=== PATIENT | female | born 2000 | race Caucasian/White ===

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

== ENCOUNTER 2019-05-26 10:28 | Emergency (ER) | payer BC ==
[~2019-05-26] VITALS: Ht 160 cm; Wt 52.0 kg
[2019-05-26] MEDS ORDERED: ONDANSETRON 2MG/ML, 2ML IVPush ONE (11:00)
[2019-05-26] MEDS ORDERED: FAMOTIDINE 20 MG/2 ML IV ONE (11:00)
[2019-05-26] MEDS ORDERED: SODIUM CHLORIDE 0.9% 1,000ML IVBOLUS ONE ×2 (11:00→14:30)
[2019-05-26] MEDS ORDERED: SODIUM CHLORIDE FLUSH 10ML SYR IVF ONE (11:00)
[2019-05-26 11:19] LABS: MEAN CORPUSCULAR HEMOGLOBIN 28.6 pg (27.0-34.8); MEAN CORPUSCULAR HGB CONC 32.6 g/dL (32.4-35.8); MEAN CORPUSCULAR VOLUME 87.8 fL (80-100); MEAN PLATELET VOLUME 9.2 fL (7.4-10.4); PLATELET COUNT 148 x10^3/uL (130-400); RED BLOOD COUNT 5.61 x10^6/uL (3.82-5.3); RED CELL DISTRIBUTION WIDTH 13.5 % (9.6-15.2)
[2019-05-26 11:31] LABS: ALANINE AMINOTRANSFERASE 732 U/L (12-78); ALBUMIN 3.8 g/dL (3.4-5.0); ANION GAP 4 mmol/L (5-15); CALCIUM 8.6 mg/dL (8.5-10.1); CHLORIDE 106 mmol/L (98-107); CREATININE 0.87 mg/dL (0.55-1.02)
[2019-05-26 11:36] LABS: ALKALINE PHOSPHATASE 309 U/L (45-117); BILIRUBIN,TOTAL 2.1 mg/dL (0.2-1.0); TOTAL PROTEIN 7.8 g/dL (6.4-8.2)
[2019-05-26] MEDS ORDERED: FAMOTIDINE 20 MG/2 ML ONE (11:43)
[2019-05-26] MEDS ORDERED: ONDANSETRON 2MG/ML, 2ML ONE (11:43)
[2019-05-26 11:55] LABS: MD YES
--- NOTE | 2019-05-26 12:18 | NUR ---
US AT BEDSIDE
[2019-05-26 12:31] LABS: BANDS%(MANUAL) 5 % (0-7); LYMPH#(MANUAL) 4.52 x10^3/uL (1-6.1); LYMPHS% (MANUAL) 38 % (22-44); MONOS#(MANUAL) 0.36 x10^3/uL (0.3-2.7); MONOS% (MANUAL) 3 % (2-9); REACTIVE LYMPHS # (MANUAL) 3.69 x10^3/uL (0-0); SEG#(MANUAL) 2.74 x10^3/uL (1.8-8); SEGS% (MANUAL) 23 % (42-75)
[2019-05-26 12:33] LABS: <RBC MORPHOLOGY> NORMAL; REACTIVE LYMPHS % (MANUAL) 31 % (0-0)
[2019-05-26 12:34] LABS: <PLATELET ESTIMATE> ADEQUATE; <PLT MORPHOLOGY> NORMAL PLT MORPH
--- NOTE | 2019-05-26 13:14 | NUR ---
bedside report from Vanessa RN, pt care assumed at this time. Awaiting additional labs & dispo.
--- NOTE | 2019-05-26 13:23 | NUR ---
report to Gladys VASQUEZ, pt care transferred at this time
--- NOTE | 2019-05-26 13:27 | NUR ---
RECEIVED REPORT FROM LOREE. PT UPRIGHT ON GURNEY AWAKE & CALM, RESPONDS APPROP TO STAFF, COMFORT MEASURES PROVIDED, FAMILY AT BS, CALL LIGHT WITHIN REACH.
[2019-05-26 13:36] LABS: CULTURE INDICATED? NO; MICROSCOPIC NOT IND
--- NOTE | 2019-05-26 14:00 | NUR ---
TASK RN: FAMILY APPROACHED THIS RN REGARDING PT'S REQUEST FOR ICE CHIPS. PRIMARY RN UNAVAILABLE AT THIS TIME. PT'S FAMILY MEMBER DEMANDING ICE CHIPS DESPITE STAFF EDUCATION. ICE CHIPS GIVEN, FAMILY VERBALIZED UNDERSTANDING OF RISKS TO PT AND PLAN OF CARE.
--- NOTE | 2019-05-26 14:03 | NUR ---
PT LAYING ON GURNEY AWAKE & CALM, RESPONDS APPROP TO STAFF, NAD, NO NEEDS AT THIS TIME, PA AT BS UPDATING PT & PARENTS ON POC, CALL LIGHT WITHIN REACH.
[2019-05-26] MEDS ORDERED: METOCLOPRAMIDE 5 MG/ML, 2ML ONE (14:23)
[2019-05-26] MEDS ORDERED: METOCLOPRAMIDE 5 MG/ML, 2ML IVPush ONE (14:30)
[2019-05-26 15:05] VITALS: BP 115/61
--- NOTE | 2019-05-26 15:06 | NUR ---
Patient & parents given discharge instructions and Rx, they have confirmed that they understand the instructions. Patient ambulatory with steady gait.
== END 2019-05-26 15:07 | disposition home or self-care (01) ==
LOC: ED 11:09
DX: B17.9 Acute viral hepatitis, unspecified (principal); R11.2 Nausea with vomiting, unspecified
CPT/HCPCS: 36415; 76700; 80053; 80074; 81003; 83690; 84703; 85025; 96361; 96374; 96375; 99284; J2405; J2765; J3490; J7030